=== PATIENT | female | born 1970 | race American Indian/Alaskan Native ===

== ENCOUNTER 2016-05-25 18:00 | Emergency (ER) | payer MEDICAID ==
[2016-05-25 18:18] VITALS: BP 165/94
[2016-05-25 19:54] LABS: CHLORIDE,CL 103 mmol/L (101-111); SODIUM,NA 138 mmol/L (135-145)
[2016-05-25] MEDS ORDERED: Potassium Chloride 10 MEQ Tab.ER PO ONE (20:00)
--- NOTE | 2016-05-25 20:00 | EDM.PDOC ---
ED HISTORY OF PRESENT ILLNESS - General Chief Complaint: Respiratory Problem Stated Complaint: SOB Time Seen by Provider: 05/25/16 19:05 Source of Information: Reports: Patient History Limitations: Reports: No limitations - History of Present Illness INITIAL COMMENTS - FREE TEXT/NARRATIVE: c/o not feeling well, tired, epigastric chest discomfort at time radiates into back Loose stools, worse since starting antibiotic and prednisone this week for bronchitis. Not feeling better with meds and concerned since clinic "didn't do any labs or xray" Severity: mild Location, General: Reports: chest - Related Data Allergies/ADRs: Allergies Allergy/AdvReac Type Severity Reaction Status Date / Time lisinopril Allergy UNKNOWN Verified 05/26/16 22:31 DUST Allergy SNEEZING/CO Uncoded 05/26/16 22:31 NGESTION Home Meds: Home Meds Propranolol [Inderal] 1 tab PO DAILY 03/17/15 [History] Loratadine [Claritin] 10 mg PO DAILY 04/17/15 [History] amLODIPine [Norvasc] 5 mg PO DAILY 09/04/15 [History] atorvaSTATin [Lipitor] 20 mg PO DAILY 11/25/15 [History] Aspirin 81 mg PO DAILY 05/26/16 [History] Past Medical History - Past Health History Medical/Surgical History: Denies Medical/Surgical History Cardiovascular History: Reports: Hypertension Respiratory History: Reports: None Gastrointestinal History: Reports: None 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 History: Reports: None [employer]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 OB/BYN History: 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, 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 Musculoskeletal History: Reports: None Neurological History: Reports: None Psychiatric History: Reports: Anxiety Endocrine/Metabolic History: Reports: None Hematologic History: Reports: None Immunologic History: Reports: Other (see below) Other Immunologic History: lupus Oncologic (Cancer) History: Reports: None - Past Surgical History GI Surgical History: Reports: None Female Surgical History: Reports: Hysterectomy, Tubal ligation Dermatological Surgical History: Reports: None Social & Family History - Family History Family Medical History: Noncontributory Cardiac: Reports: CAD, Heart failure, High cholesterol, Hypertension, SOB on exertion Respiratory: Reports: Asthma, COPD Neurological: Reports: CVA - Tobacco Use Smoking Status *Q: Current Every Day Smoker Years of Tobacco use: 20 Packs/Tins Daily: 1 Used Tobacco, but Quit: No Second Hand Smoke Exposure: Yes - Caffeine Use Caffeine Use: Reports: Coffee - Alcohol Use Days Per Week of Alcohol Use: 1 Number of Drinks Per Day: 6 Total Drinks Per Week: 6 - Recreational Drug Use Recreational Drug Use: No - Living Situation & Occupation Living situation: Reports: with family Occupation: employed ED ROS GENERAL - Review of Systems Review Of Systems: See Below Constitutional: Reports: malaise, fatigue, decreased appetite Cardiovascular: Reports: No symptoms GI/Abdominal: Reports: No symptoms : Reports: no symptoms Musculoskeletal: Reports: other (aches) ED EXAM, GENERAL - Physical Exam Exam: See Below Exam Limited By: No limitations General Appearance: alert, no apparent distress, anxious Eye Exam: bilateral eye: EOMI Ears: normal external exam, normal TMs Nose: normal inspection Throat/Mouth: Normal inspection, Normal lips Head: atraumatic, normocephalic Neck: normal inspection, non-tender, full range of motion Respiratory/Chest: no respiratory distress, lungs clear, normal breath sounds Cardiovascular: normal peripheral pulses, regular rate, rhythm GI/Abdominal: normal bowel sounds, soft, non tender Rectal (Female) Exam: Normal Exam Back Exam: normal inspection. No: CVA tenderness (L), CVA tenderness (R) Extremities: normal inspection Neurological: alert, oriented, normal cognition Course - Vital Signs Last Recorded V/S: Last Vital Signs Temp 97.8 F 05/25/16 18:13 Pulse 72 05/25/16 18:13 Resp 16 05/25/16 18:13 BP 165/94 H 05/25/16 18:13 Pulse Ox 99 05/25/16 18:13 - Orders/Labs/Meds Labs: Laboratory Tests 05/25/16 05/25/16 05/25/16 Range/Units 19:18 19:18 19:25 WBC 9.5 (5.0-10.0) 10^3/uL RBC 4.24 (4.2-5.4) 10^6/uL Hgb 13.6 (12.0-16.0) g/dL Hct 40.1 (37.0-47.0) % MCV 94.6 (80-100) fL MCH 32.1 (27.0-34.0) pg MCHC 33.9 (33.0-35.0) g/dL Plt Count 221 (150-450) 10^3/uL Neut % (Auto) 53.1 (42.2-75.2) % Lymph % (Auto) 36.4 (20.5-50.1) % [place] % (Auto) 8.6 H (2-8) % Eos % (Auto) 1.7 (1.0-3.0) % Baso % (Auto) 0.2 (0.0-1.0) % D-Dimer, Quantitative (0-400) ng/mL Sodium (135-145) mmol/L Potassium (3.6-5.0) mmol/L Chloride (101-111) mmol/L Carbon Dioxide (21.0-31.0) mmol/L Anion Gap BUN (7-18) mg/dL Creatinine (0.6-1.3) mg/dL Est Cr Clr Drug Dosing mL/min Estimated GFR (MDRD) BUN/Creatinine Ratio Glucose (74-105) mg/dL Calcium (8.4-10.2) mg/dl Total Bilirubin (0.2-1.0) mg/dL AST (10-42) IU/L ALT (10-60) IU/L Alkaline Phosphatase (42-121) IU/L CK-MB (CK-2) (0.4-4.7) ng/mL Troponin I (0.00-0.02) ng/ml B-Natriuretic Peptide (0-100) pg/ml Total Protein (6.7-8.2) g/dl Albumin (3.2-5.5) g/dl Globulin Albumin/Globulin Ratio Amylase (28-100) U/L Lipase (22-51) U/L Urine Color [place] (YELLOW) Urine Appearance Clear (CLEAR) Urine pH 5.5 (5.0-9.0) Ur Specific [place] >= 1.030 (1.005-1.030) Urine Protein 30 H (NEGATIVE) Urine Glucose (UA) Negative (NEGATIVE) Urine Ketones Trace H (NEGATIVE) Urine Occult Blood Negative (NEGATIVE) Urine Nitrite Negative (NEGATIVE) Urine Bilirubin Small H (NEGATIVE) Urine Urobilinogen 0.2 (0.2-1.0) mg/dL Ur Leukocyte Esterase Negative (NEGATIVE) Urine RBC 0-5 /HPF Urine WBC 0-5 (0-5/HPF) /HPF Ur Epithelial Cells Moderate H /HPF Urine Bacteria Few (0-FEW/HPF) /HPF Hyaline Casts Few H /LPF Urine Mucus Many H /LPF Urine Opiates Screen Negative (NEGATIVE) Ur Oxycodone Screen Negative (NEGATIVE) Urine Methadone Screen Negative (NEGATIVE) Ur Barbiturates Screen Negative (NEGATIVE) U Tricyclic Antidepress Negative (NEGATIVE) Ur Phencyclidine Scrn Negative (NEGATIVE) Ur Amphetamine Screen Negative (NEGATIVE) U Methamphetamines Scrn Negative (NEGATIVE) Urine MDMA Screen Negative (NEGATIVE) U Benzodiazepines Scrn Negative (NEGATIVE) Urine Cocaine Screen Negative (NEGATIVE) U Marijuana (THC) Screen Negative (NEGATIVE) 05/25/16 05/25/16 05/25/16 Range/Units 19:25 19:25 19:25 WBC (5.0-10.0) 10^3/uL RBC (4.2-5.4) 10^6/uL Hgb (12.0-16.0) g/dL Hct (37.0-47.0) % MCV (80-100) fL MCH (27.0-34.0) pg MCHC (33.0-35.0) g/dL Plt Count (150-450) 10^3/uL Neut % (Auto) (42.2-75.2) % Lymph % (Auto) (20.5-50.1) % [place] % (Auto) (2-8) % Eos % (Auto) (1.0-3.0) % Baso % (Auto) (0.0-1.0) % D-Dimer, Quantitative < 100 (0-400) ng/mL Sodium 138 (135-145) mmol/L Potassium 3.1 L (3.6-5.0) mmol/L Chloride 103 (101-111) mmol/L Carbon Dioxide 25.0 (21.0-31.0) mmol/L Anion Gap 13.1 BUN 20 H (7-18) mg/dL Creatinine 0.5 L (0.6-1.3) mg/dL Est Cr Clr Drug Dosing 133.01 mL/min Estimated GFR (MDRD) > 60 BUN/Creatinine Ratio 40.00 Glucose 97 (74-105) mg/dL Calcium 8.8 (8.4-10.2) mg/dl Total Bilirubin 0.1 L (0.2-1.0) mg/dL AST 17 (10-42) IU/L ALT 21 (10-60) IU/L Alkaline Phosphatase 85 (42-121) IU/L CK-MB (CK-2) 1.10 (0.4-4.7) ng/mL Troponin I 0.06 H* (0.00-0.02) ng/ml B-Natriuretic Peptide (0-100) pg/ml Total Protein 7.3 (6.7-8.2) g/dl Albumin 4.1 (3.2-5.5) g/dl Globulin 3.2 Albumin/Globulin Ratio 1.28 Amylase 63 (28-100) U/L Lipase 31 (22-51) U/L Urine Color (YELLOW) Urine Appearance (CLEAR) Urine pH (5.0-9.0) Ur Specific [place] (1.005-1.030) Urine Protein (NEGATIVE) Urine Glucose (UA) (NEGATIVE) Urine Ketones (NEGATIVE) Urine Occult Blood (NEGATIVE) Urine Nitrite (NEGATIVE) Urine Bilirubin (NEGATIVE) Urine Urobilinogen (0.2-1.0) mg/dL Ur Leukocyte Esterase (NEGATIVE) Urine RBC /HPF Urine WBC (0-5/HPF) /HPF Ur Epithelial Cells /HPF Urine Bacteria (0-FEW/HPF) /HPF Hyaline Casts /LPF Urine Mucus /LPF Urine Opiates Screen (NEGATIVE) Ur Oxycodone Screen (NEGATIVE) Urine Methadone Screen (NEGATIVE) Ur Barbiturates Screen (NEGATIVE) U Tricyclic Antidepress (NEGATIVE) Ur Phencyclidine Scrn (NEGATIVE) Ur Amphetamine Screen (NEGATIVE) U Methamphetamines Scrn (NEGATIVE) Urine MDMA Screen (NEGATIVE) U Benzodiazepines Scrn (NEGATIVE) Urine Cocaine Screen (NEGATIVE) U Marijuana (THC) Screen (NEGATIVE) 05/25/16 Range/Units 19:25 WBC (5.0-10.0) 10^3/uL RBC (4.2-5.4) 10^6/uL Hgb (12.0-16.0) g/dL Hct (37.0-47.0) % MCV (80-100) fL MCH (27.0-34.0) pg MCHC (33.0-35.0) g/dL Plt Count (150-450) 10^3/uL Neut % (Auto) (42.2-75.2) % Lymph % (Auto) (20.5-50.1) % [place] % (Auto) (2-8) % Eos % (Auto) (1.0-3.0) % Baso % (Auto) (0.0-1.0) % D-Dimer, Quantitative (0-400) ng/mL Sodium (135-145) mmol/L Potassium (3.6-5.0) mmol/L Chloride (101-111) mmol/L Carbon Dioxide (21.0-31.0) mmol/L Anion Gap BUN (7-18) mg/dL Creatinine (0.6-1.3) mg/dL Est Cr Clr Drug Dosing mL/min Estimated GFR (MDRD) BUN/Creatinine Ratio Glucose (74-105) mg/dL Calcium (8.4-10.2) mg/dl Total Bilirubin (0.2-1.0) mg/dL AST (10-42) IU/L ALT (10-60) IU/L Alkaline Phosphatase (42-121) IU/L CK-MB (CK-2) (0.4-4.7) ng/mL Troponin I (0.00-0.02) ng/ml B-Natriuretic Peptide 12 (0-100) pg/ml Total Protein (6.7-8.2) g/dl Albumin (3.2-5.5) g/dl Globulin Albumin/Globulin Ratio Amylase (28-100) U/L Lipase (22-51) U/L Urine Color (YELLOW) Urine Appearance (CLEAR) Urine pH (5.0-9.0) Ur Specific [place] (1.005-1.030) Urine Protein (NEGATIVE) Urine Glucose (UA) (NEGATIVE) Urine Ketones (NEGATIVE) Urine Occult Blood (NEGATIVE) Urine Nitrite (NEGATIVE) Urine Bilirubin (NEGATIVE) Urine Urobilinogen (0.2-1.0) mg/dL Ur Leukocyte Esterase (NEGATIVE) Urine RBC /HPF Urine WBC (0-5/HPF) /HPF Ur Epithelial Cells /HPF Urine Bacteria (0-FEW/HPF) /HPF Hyaline Casts /LPF Urine Mucus /LPF Urine Opiates Screen (NEGATIVE) Ur Oxycodone Screen (NEGATIVE) Urine Methadone Screen (NEGATIVE) Ur Barbiturates Screen (NEGATIVE) U Tricyclic Antidepress (NEGATIVE) Ur Phencyclidine Scrn (NEGATIVE) Ur Amphetamine Screen (NEGATIVE) U Methamphetamines Scrn (NEGATIVE) Urine MDMA Screen (NEGATIVE) U Benzodiazepines Scrn (NEGATIVE) Urine Cocaine Screen (NEGATIVE) U Marijuana (THC) Screen (NEGATIVE) Meds: Medications Discontinued Medications Generic Name Dose Route Start Last Admin Trade Name Fabian PRN Reason Stop Dose Admin Aspirin 324 mg 05/25/16 20:02 05/25/16 20:12 Aspirin PO 05/25/16 20:03 324 mg ONETIME ONE Administration Potassium Chloride 40 meq 05/25/16 20:00 05/25/16 20:13 Klor-Con 10 PO 05/25/16 20:01 40 meq ONETIME ONE Administration - Re-Assessments/Exams Free Text/Narrative Re-Assessment/Exam: Vitals stable, nonspecific complaints with elevated troponin. Dr. Triana accepting of patient in tx. Tx via [facility] Departure - Departure Time of Disposition: 06:50 Disposition: DC/Tfer to Acute Hospital 02 Condition: good Clinical Impression: Elevated troponin, Malaise Referrals: PCP,Unobtain [Primary Care Provider] - Forms: ED Department Discharge
[2016-05-25] MEDS ORDERED: Aspirin 81 MG Tab.Chew PO ONE (20:02)
--- NOTE | 2016-07-07 12:55 | EKG ---
05/25/2016 - JACK VALLADARES - 12-lead EKG shows normal sinus rhythm with heart rate of 65. No significant ST elevation or ST depression noted on this 12-lead EKG. [facility] /[id number]
== END 2016-05-25 21:00 ==
LOC: DL.ED 18:00
DX: R79.89 Other specified abnormal findings of blood chemistry (principal); R53.81 Other malaise; R06.02 Shortness of breath; R07.89 Other chest pain; M54.9 Dorsalgia, unspecified; R19.7 Diarrhea, unspecified; I10 Essential (primary) hypertension; Z79.82 Long term (current) use of aspirin; Z79.899 Other long term (current) drug therapy; Z88.8 Allergy status to other drugs, medicaments and biological substances; Z91.048 Other nonmedicinal substance allergy status
CPT/HCPCS: 36415; 71020; 80053; 80305; 81001; 82150; 82553; 83690; 83880; 84484; 85025; 85379; 87081; 87430; 87804; 93005; 99285; A9270

== ENCOUNTER 2016-05-26 22:19 | Emergency (ER) | payer MEDICAID ==
[2016-05-26 22:59] VITALS: BP 144/96
--- NOTE | 2016-05-26 23:13 | EDM.PDOC ---
ED HPI NEURO - General Chief Complaint: Neuro Symptoms/Deficits Stated Complaint: PINCHED NERVE OR STROKE Time Seen by Provider: 05/26/16 22:30 Source of Information: Reports: Patient - History of Present Illness INITIAL COMMENTS - FREE TEXT/NARRATIVE: c/o tingling left arm from neck to wrist, noted around 4 pm while at work, finished shift and was told by sister she should go to ER. Patient was transferred to last [facility] with elevated troponin, follow up was negative, no medication changes were made. No other symptoms. No weakness. Questions if from sleeping funny last kiley. Location (Neuro Complaint): Reports: upper extremity, left Quality (Neuro Complaint): Reports: numbness - Related Data Allergies/ADRs: Allergies Allergy/AdvReac Type Severity Reaction Status Date / Time lisinopril Allergy UNKNOWN Verified 05/26/16 22:31 DUST Allergy SNEEZING/CO Uncoded 05/26/16 22:31 NGESTION Home Meds: Home Meds Propranolol [Inderal] 1 tab PO DAILY 03/17/15 [History] Loratadine [Claritin] 10 mg PO DAILY 04/17/15 [History] amLODIPine [Norvasc] 5 mg PO DAILY 09/04/15 [History] atorvaSTATin [Lipitor] 20 mg PO DAILY 11/25/15 [History] Aspirin 81 mg PO DAILY 05/26/16 [History] Past Medical History - Past Health History Medical/Surgical History: Denies Medical/Surgical History Cardiovascular History: Reports: Hypertension Respiratory History: Reports: None Gastrointestinal History: Reports: None 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 History: Reports: None [employer]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 OB/BYN History: 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, 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 Musculoskeletal History: Reports: None Neurological History: Reports: None Psychiatric History: Reports: Anxiety Endocrine/Metabolic History: Reports: None Hematologic History: Reports: None Immunologic History: Reports: Other (see below) Other Immunologic History: lupus Oncologic (Cancer) History: Reports: None - Past Surgical History GI Surgical History: Reports: None Female Surgical History: Reports: Hysterectomy, Tubal ligation Dermatological Surgical History: Reports: None Social & Family History - Family History Family Medical History: Noncontributory Cardiac: Reports: CAD, Heart failure, High cholesterol, Hypertension, SOB on exertion Respiratory: Reports: Asthma, COPD Neurological: Reports: CVA - Tobacco Use Smoking Status *Q: Current Every Day Smoker Years of Tobacco use: 34 Packs/Tins Daily: 0.5 Used Tobacco, but Quit: No Second Hand Smoke Exposure: Yes - Caffeine Use Caffeine Use: Reports: Coffee - Alcohol Use Days Per Week of Alcohol Use: 1 Number of Drinks Per Day: 6 Total Drinks Per Week: 6 - Recreational Drug Use Recreational Drug Use: No - Living Situation & Occupation Living situation: Reports: with family Occupation: employed ED ROS GENERAL - Review of Systems Review Of Systems: See Below Constitutional: Reports: no symptoms HEENT: Reports: No symptoms Respiratory: Reports: no symptoms Cardiovascular: Reports: No symptoms GI/Abdominal: Reports: No symptoms Musculoskeletal: Reports: no symptoms Skin: Reports: no symptoms Neurological: Reports: numbness (left arm) ED EXAM, NEURO - Physical Exam Exam: See Below Exam Limited By: No limitations General Appearance: alert, no apparent distress, anxious Eye Exam: bilateral eye: EOMI, PERRL (3mm equal) Ears: normal external exam, normal TMs Nose: normal inspection Throat/Mouth: Normal inspection, Normal lips Head Exam: atraumatic, normocephalic. No: facial swelling, facial tenderness Neck: full range of motion, tender lateral (mild tenderness left worse with stretching) Respiratory/Chest: no respiratory distress, lungs clear, normal breath sounds Cardiovascular: normal peripheral pulses, regular rate, rhythm, no edema GI/Abdominal: normal bowel sounds, soft Neurological: alert, CN II-XII intact, normal gait, normal reflexes, no motor/ sensory deficits, oriented x 3, other (bilateral upper extremity strength strong equal , pain noted left inner froearm to shoulder area with char filter tank tender head sharp.) . No: abnormal light touch Back Exam: normal inspection, full range of motion Extremities: normal inspection, normal range of motion, non-tender Psychiatric: anxious Skin Exam: Warm, Dry, Intact, Normal color Course - Vital Signs Last Recorded V/S: Last Vital Signs Temp 97 F 05/26/16 22:24 Pulse 80 05/26/16 22:59 Resp 16 05/26/16 22:59 BP 144/96 H 05/26/16 22:59 Pulse Ox 100 05/26/16 22:59 - Radiology Interpretation Free Text/Narrative:: CT head negative Departure - Departure Time of Disposition: 23:07 Disposition: Home, Self-Care 01 Condition: good Clinical Impression: Pinched nerve Instructions: Pinched Nerve Forms: ED Department Discharge Additional Instructions: rest follow up with appointments as scheduled urgent follow up if symptoms worsen continue medications as ordered
== END 2016-05-26 23:14 | disposition home or self-care (01) ==
LOC: DL.ED 22:19
DX: G58.9 Mononeuropathy, unspecified (principal); Z79.82 Long term (current) use of aspirin; Z79.899 Other long term (current) drug therapy; Z88.8 Allergy status to other drugs, medicaments and biological substances; Z91.048 Other nonmedicinal substance allergy status; I25.10 Atherosclerotic heart disease of native coronary artery without angina pectoris; I10 Essential (primary) hypertension; I50.9 Heart failure, unspecified; F17.210 Nicotine dependence, cigarettes, uncomplicated; E78.00 Pure hypercholesterolemia, unspecified; J44.9 Chronic obstructive pulmonary disease, unspecified; R20.0 Anesthesia of skin
CPT/HCPCS: 70450; 99285

== ENCOUNTER 2016-11-09 17:43 | Emergency (ER) | payer MEDICAID ==
[2016-11-09] MEDS ORDERED: Sodium Chloride 0.9% 10 ML Syringe FLUSH PRN (18:00)
[2016-11-09] MEDS ORDERED: Iopamidol 612 MG/ML 100 ML Bottle IVPUSH ONE (18:14)
[2016-11-09 18:38] LABS: CHLORIDE,CL 105 mmol/L (101-111); SODIUM,NA 137 mmol/L (135-145)
--- NOTE | 2016-11-09 18:57 | EDM.PDOC ---
ED HPI GENERAL MEDICAL PROBLEM - General Chief Complaint: Abdominal Pain Stated Complaint: feel sick [id number] Time Seen by Provider: 11/09/16 18:00 Source of Information: Reports: Patient History Limitations: Reports: No Limitations - History of Present Illness INITIAL COMMENTS - FREE TEXT/NARRATIVE: 46 yo female presents with 1 week of epigastric pain after eating. c/o mild chest pain but state pain more prevelent in abdomen. Denies radiation but states that today she had an episode of vomiting green fluid. No other complaints currently. 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 Medication(s) (omeprazole) Epigastric Pain Score (Numeric/FACES): 8 - Related Data Allergies Allergy/AdvReac Type Severity Reaction Status Date / Time lisinopril Allergy UNKNOWN Verified 11/09/16 18:02 DUST Allergy SNEEZING/CO Uncoded 11/09/16 18:02 NGESTION Home Meds: Home Meds Propranolol [Inderal] 1 tab PO DAILY 03/17/15 [History] Loratadine [Claritin] 10 mg PO DAILY 04/17/15 [History] Aspirin 81 mg PO DAILY 05/26/16 [History] Omeprazole 20 mg PO DAILY 11/09/16 [History] Past Medical History - Past Health History Medical/Surgical History: Denies Medical/Surgical History Cardiovascular History: Reports: High Cholesterol, Hypertension Respiratory History: Reports: Bronchitis, Recurrent Gastrointestinal History: Reports: GERD 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 History: Reports: None 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 OB/BYN History: 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, 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 Musculoskeletal History: Reports: None Neurological History: Reports: None Psychiatric History: Reports: Anxiety Endocrine/Metabolic History: Reports: None Hematologic History: Reports: None Immunologic History: Reports: Other (See Below) Other Immunologic History: lupus Oncologic (Cancer) History: Reports: None - Past Surgical History GI Surgical History: Reports: None Female Surgical History: Reports: Hysterectomy, Tubal Ligation Dermatological Surgical History: Reports: None Social & Family History - Family History Family Medical History: Noncontributory Cardiac: Reports: CAD, Heart Failure, High Cholesterol, Hypertension, SOB on Exertion Respiratory: Reports: Asthma, COPD Neurological: Reports: CVA - Tobacco Use Smoking Status *Q: Former Smoker Years of Tobacco use: 34 Packs/Tins Daily: 0.5 Used Tobacco, but Quit: Yes Month Tobacco Last Used: unknown Second Hand Smoke Exposure: Yes - Caffeine Use Caffeine Use: Reports: Coffee - Alcohol Use Days Per Week of Alcohol Use: 1 Number of Drinks Per Day: 6 Total Drinks Per Week: 6 - Recreational Drug Use Recreational Drug Use: No - Living Situation & Occupation Living situation: Reports: with Family Occupation: Employed ED ROS GENERAL - Review of Systems Review Of Systems: ROS reveals no pertinent complaints other than HPI. ED EXAM,LOWER BACK PAIN/INJURY - Physical Exam Exam: See Below Exam Limited By: No Limitations General Appearance: Alert, WD/WN, No Apparent Distress Respiratory/Chest: No Respiratory Distress, Lungs Clear, Normal Breath Sounds, No Accessory Muscle Use, Chest Non-Tender Cardiovascular: Normal Peripheral Pulses, Regular Rate, Rhythm, No Edema, No Gallop, No JVD, No Murmur, No Rub GI/Abdominal: Normal Bowel Sounds, Soft, No Organomegaly, No Distention, No Abnormal Bruit, No Mass, Tender (epigastric area ) Neurological: Alert, Normal Mood/Affect, Normal Dorsiflexion, CN II-XII Intact, Normal Gait, No Motor/Sensory Deficits, Oriented x 3 Skin Exam: Warm, Dry, Intact, Normal Color, No Rash Course - Vital Signs Last Recorded V/S: Last Vital Signs Temp 98.8 F 11/09/16 18:13 Pulse 85 11/09/16 18:13 Resp 20 11/09/16 18:13 BP 166/86 H 11/09/16 19:11 Pulse Ox 100 11/09/16 18:13 - Orders/Labs/Meds Orders: Active Orders 24 hr Category Date Time Status Cardiac Monitoring [RC] . DIRECTED Care 11/09/16 18:00 Active EKG Documentation Completion [RC] STAT Care 11/09/16 18:00 Active Sodium Chloride 0.9% [Saline Flush] Med 11/09/16 18:00 Active 10 ml FLUSH ASDIRECTED PRN Saline Lock Insert [OM.PC] Stat Oth 11/09/16 18:00 Ordered Medication Orders Sodium Chloride (Saline Flush) 10 ml FLUSH ASDIRECTED PRN PRN Reason: Keep Vein Open Last Admin: 11/09/16 18:17 Dose: 10 ml Labs: Laboratory Tests 11/09/16 11/09/16 11/09/16 Range/Units 18:10 18:10 18:10 WBC 7.4 (5.0-10.0) 10^3/uL RBC 4.06 L (4.2-5.4) 10^6/uL Hgb 13.1 (12.0-16.0) g/dL Hct 37.7 (37.0-47.0) % MCV 92.9 (80-100) fL MCH 32.3 (27.0-34.0) pg MCHC 34.7 (33.0-35.0) g/dL Plt Count 203 (150-450) 10^3/uL Neut % (Auto) 60.7 (42.2-75.2) % Lymph % (Auto) 23.4 (20.5-50.1) % [place] % (Auto) 11.8 H (2-8) % Eos % (Auto) 3.8 H (1.0-3.0) % Baso % (Auto) 0.3 (0.0-1.0) % PT 8.8 L (9.0-12.0) SEC INR 0.9 (0.9-1.2) Sodium 137 (135-145) mmol/L Potassium 4.0 (3.6-5.0) mmol/L Chloride 105 (101-111) mmol/L Carbon Dioxide 22.0 (21.0-31.0) mmol/L Anion Gap 14.0 BUN 17 (7-18) mg/dL Creatinine 0.7 (0.6-1.3) mg/dL Est Cr Clr Drug Dosing 95.01 mL/min Estimated GFR (MDRD) > 60 BUN/Creatinine Ratio 24.28 Glucose 123 H (74-105) mg/dL Calcium 9.1 (8.4-10.2) mg/dl Total Bilirubin 0.3 (0.2-1.0) mg/dL AST 20 (10-42) IU/L ALT 23 (10-60) IU/L Alkaline Phosphatase 89 (42-121) IU/L Creatine Kinase (26-174) IU/L Creatine Kinase Index (0-2.4) % CK-MB (CK-2) (0.4-4.7) ng/mL Troponin I 0.06 H* (0.00-0.02) ng/ml Total Protein 7.0 (6.7-8.2) g/dl Albumin 3.9 (3.2-5.5) g/dl Globulin 3.1 Albumin/Globulin Ratio 1.26 Amylase 68 (28-100) U/L Lipase (22-51) U/L 11/09/16 11/09/16 Range/Units 18:10 18:10 WBC (5.0-10.0) 10^3/uL RBC (4.2-5.4) 10^6/uL Hgb (12.0-16.0) g/dL Hct (37.0-47.0) % MCV (80-100) fL MCH (27.0-34.0) pg MCHC (33.0-35.0) g/dL Plt Count (150-450) 10^3/uL Neut % (Auto) (42.2-75.2) % Lymph % (Auto) (20.5-50.1) % [place] % (Auto) (2-8) % Eos % (Auto) (1.0-3.0) % Baso % (Auto) (0.0-1.0) % PT (9.0-12.0) SEC INR (0.9-1.2) Sodium (135-145) mmol/L Potassium (3.6-5.0) mmol/L Chloride (101-111) mmol/L Carbon Dioxide (21.0-31.0) mmol/L Anion Gap BUN (7-18) mg/dL Creatinine (0.6-1.3) mg/dL Est Cr Clr Drug Dosing mL/min Estimated GFR (MDRD) BUN/Creatinine Ratio Glucose (74-105) mg/dL Calcium (8.4-10.2) mg/dl Total Bilirubin (0.2-1.0) mg/dL AST (10-42) IU/L ALT (10-60) IU/L Alkaline Phosphatase (42-121) IU/L Creatine Kinase 25 L (26-174) IU/L Creatine Kinase Index 2.4 (0-2.4) % CK-MB (CK-2) 0.60 (0.4-4.7) ng/mL Troponin I (0.00-0.02) ng/ml Total Protein (6.7-8.2) g/dl Albumin (3.2-5.5) g/dl Globulin Albumin/Globulin Ratio Amylase (28-100) U/L Lipase 33 (22-51) U/L Meds: Medications Generic Name Dose Route Start Last Admin Trade Name Fabian PRN Reason Stop Dose Admin Sodium Chloride 10 ml 11/09/16 18:00 11/09/16 18:17 Saline Flush FLUSH 10 ml ASDIRECTED PRN Administration Keep Vein Open Discontinued Medications Generic Name Dose Route Start Last Admin Trade Name Freq PRN Reason Stop Dose Admin Aspirin 324 mg 11/09/16 19:00 11/09/16 19:10 Aspirin PO 11/09/16 19:01 324 mg ONETIME ONE Administration Iopamidol 100 ml 11/09/16 18:14 11/09/16 18:24 Isovue-300 (61%) IVPUSH 11/09/16 18:15 100 ml ONETIME ONE Administration Nitroglycerin 1 gm 11/09/16 19:00 Nitro-Bid 2% TOP 11/09/16 19:01 ONETIME ONE Nitroglycerin 0.4 mg 11/09/16 19:00 11/09/16 19:11 Nitrostat SL 11/09/16 19:01 0.4 mg ONETIME ONE Administration - Re-Assessments/Exams Free Text/Narrative Re-Assessment/Exam: 11/09/16 19:10 Discussed case with Arias Roe who accepts the patient. Will treat HTN prior to transfer. 11/09/16 19:16 Pt refused to be transported by ground ambulance. States she will go by private vehicle per family. Explained to patient that her blood pressure is high and she needs to be monitored. Pt states that she still wants to go via private vehicle. Informed patient that she will be refusing against medical advice and will need to sign AMA form. 11/09/16 19:33 reattempted to explain to patient need for transport via ambulance with monitoring and pt continues to refuse. AMA paperwork signed. Pt states that she will drive to [facility] via her sister. Notified [facility] that pt is refusing transport and will arrive via private vehicle Departure - Departure Time of Disposition: 19:11 Disposition: Against Medical Advice 07 Condition: Good Clinical Impression: Non-STEMI (non-ST elevated myocardial infarction) - Discharge Information Forms: ED Department Discharge, Interfacility Transfer EMTALA, Refusal of Care AMA - My Orders Last 24 Hours: My Active Orders 11/09/16 18:00 Cardiac Monitoring [RC] . DIRECTED EKG Documentation Completion [RC] STAT Sodium Chloride 0.9% [Saline Flush] 10 ml FLUSH ASDIRECTED PRN Saline Lock Insert [OM.PC] Stat - Assessment/Plan Last 24 Hours: My Active Orders 11/09/16 18:00 Cardiac Monitoring [RC] . DIRECTED EKG Documentation Completion [RC] STAT Sodium Chloride 0.9% [Saline Flush] 10 ml FLUSH ASDIRECTED PRN Saline Lock Insert [OM.PC] Stat
[2016-11-09] MEDS ORDERED: Aspirin 81 MG Tab.Chew PO ONE (19:00)
[2016-11-09] MEDS ORDERED: Nitroglycerin 2% Oint 1 GM UD Packet TOP ONE (19:00)
[2016-11-09] MEDS ORDERED: Nitroglycerin 0.4 MG Tab.SL SL ONE (19:00)
[2016-11-09 19:34] VITALS: BP 163/94
--- NOTE | 2016-11-12 15:16 | EKG ---
11/09/2016- JACK VALLADARES - EKG per my reading shows sinus rhythm at the rate of 84. [facility] /[id number]
== END 2016-11-09 19:52 | disposition left against medical advice (07) ==
LOC: DL.ED 17:43
DX: I21.4 Non-ST elevation (NSTEMI) myocardial infarction (principal); E78.00 Pure hypercholesterolemia, unspecified; I10 Essential (primary) hypertension; K21.9 Gastro-esophageal reflux disease without esophagitis; F41.9 Anxiety disorder, unspecified; Z88.8 Allergy status to other drugs, medicaments and biological substances; Z91.09 Other allergy status, other than to drugs and biological substances; Z79.899 Other long term (current) drug therapy; Z79.82 Long term (current) use of aspirin; Z90.710 Acquired absence of both cervix and uterus; Z98.51 Tubal ligation status; Z87.891 Personal history of nicotine dependence
CPT/HCPCS: 36415; 71010; 74177; 80053; 82150; 82550; 82553; 83690; 84484; 85025; 85610; 93005; 99285; A9270; J7050; Q9967

== ENCOUNTER 2016-11-27 07:18 | Day surgery (SDC) | payer MEDICAID ==
[~2016-11-27 07:18] MED LIST: Dextrose 5%-0.45% NaCl 1,000 ML IV SCH; Midazolam 1 MG/ML 2 ML SDV ONE; Sodium Chloride 0.9% 10 ML Syringe FLUSH PRN; fentaNYL 100 MCG/2 ML SDV ONE
[2016-11-27] MEDS ORDERED: Midazolam 1 MG/ML 2 ML SDV IV ONE ×3 (07:19→09:55)
[2016-11-27] MEDS ORDERED: fentaNYL 100 MCG/2 ML SDV IV ONE ×3 (07:19→09:53)
[2016-11-27 12:51] VITALS: BP 140/84
--- NOTE | 2016-11-27 13:55 | OR ---
DATE: 11/27/2016 PROCEDURE: Esophagogastroduodenoscopy and multiple pinch biopsies. INSTRUMENT USED: GIF-H180 Olympus video panendoscope. PREMEDICATIONS: No oral topical anesthesia used. Fentanyl 100 mcg intravenous, Versed 2 mg intravenous. The procedure was done under pulse oximetry, BP recording, and alarm security or surveillance monitor. INDICATION: The patient with persistent upper abdominal pain, nausea, and vomiting unexplained and not responsive to medical measures. On acid suppressants. Esophagogastroduodenoscopy is performed for detection of any active erosive lesions, Aviles esophagus and/or malignancy also under consideration, H. pylori status to be determined, endoscopic hemostasis therapy if needed. DESCRIPTION OF PROCEDURE: The scope was passed with ease. Adequate visualization of the esophagus was made from proximal to distal areas. No upper esophageal lesions identified. No distal esophageal stricture. No uphill or downhill esophageal varices. No Gail-Mathews tear. No evidence of erosive esophagitis by Early criteria. No esophageal polyp or tumor mass identified. Z-line was seen at around 40 cm distal to the oral verge, configuration consistent with grade I by ZAP classification. No proximal gastric varices noted. Gastric fundus examination by retroflexion showed no polypoid lesions. No gastric ulcer, malignant mass, or vascular ectasia identified. Duodenal bulb showed no ulcer. Visualized second part of the duodenum was unremarkable. Multiple pinch biopsies were taken from the gastric antrum and proximal body and sent for PyloriTek test for H. pylori, and if negative in an hour, tissue is to be sent for histopathology. No bleeding was noted from any of the visualized areas at the completion of examination. Photographs were taken on the duodenal bulb, gastric antrum, fundus, and distal esophagus. IMPRESSION: Normal study. The patient tolerated the procedure well. [facility] /[id number]
== END 2016-11-27 11:50 | disposition home or self-care (01) ==
LOC: DL.ENDO 07:18
PROVIDERS: ATTEND Internal Medicine Gastroenterology
PROC: 0DB78ZX Excision of Stomach, Pylorus, Via Natural or Artificial Opening Endoscopic, Diagnostic (ICD-10-PCS; principal; 2016-11-27)
DX: K29.50 Unspecified chronic gastritis without bleeding (principal); I10 Essential (primary) hypertension; Z88.8 Allergy status to other drugs, medicaments and biological substances; Z90.710 Acquired absence of both cervix and uterus; E66.09 Other obesity due to excess calories; Z98.890 Other specified postprocedural states; E78.1 Pure hyperglyceridemia; Z79.899 Other long term (current) drug therapy
CPT/HCPCS: 43239; 87077; J2250; J3010; J7042

== ENCOUNTER 2017-05-24 19:48 | Emergency (ER) | payer MEDICAID, OTHER ==
[2017-05-24] MEDS ORDERED: Metoprolol Tartrate 5 MG/5 ML SDV IVPUSH ONE ×2 (20:03→20:26)
--- NOTE | 2017-05-24 20:25 | EDM.PDOC ---
ED HPI GENERAL MEDICAL PROBLEM - General Chief Complaint: Chest Pain Stated Complaint: CHEST PAIN [id number] Time Seen by Provider: 05/24/17 20:15 Source of Information: Reports: Patient History Limitations: Reports: No Limitations - History of Present Illness INITIAL COMMENTS - FREE TEXT/NARRATIVE: c/o intermittent chest pain, started few days ago noticed first on left side of neck thought possible pinched nerve. tonight sweaty with anterior chest pain radiating around left breast area to back and left sided facial numbness. C/o felling generally weak overall. Mid-Sternal Chest Pain Score (Numeric/FACES): 4 - Related Data Allergies Allergy/AdvReac Type Severity Reaction Status Date / Time lisinopril Allergy UNKNOWN Verified 05/24/17 20:15 DUST Allergy SNEEZING/CO Uncoded 05/24/17 20:15 NGESTION Home Meds: Home Meds Propranolol [Inderal] 10 mg PO BID 03/17/15 [History] Loratadine [Claritin] 10 mg PO ASDIRECTED PRN 04/17/15 [History] Famotidine [Pepcid AC] 40 mg PO DAILY 11/26/16 [History] Turmeric Root Extract [Turmeric] 500 mg PO DAILY 11/26/16 [History] amLODIPine [Norvasc] 5 mg PO DAILY 11/26/16 [History] Past Medical History - Past Health History Medical/Surgical History: Denies Medical/Surgical History Cardiovascular History: Reports: High Cholesterol, Hypertension Respiratory History: Reports: None Gastrointestinal History: Reports: GERD 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 History: Reports: 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 OB/BYN History: 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, 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 Musculoskeletal History: Reports: Other (See Below) Other Musculoskeletal History: discoid lupus Neurological History: Reports: None Psychiatric History: Reports: Anxiety Endocrine/Metabolic History: Reports: Other (See Below) Other Endocrine/Metabolic History: IMPAIRED GLUCOSE TOLERANCE Hematologic History: Reports: None Immunologic History: Reports: Other (See Below) Other Immunologic History: lupus Oncologic (Cancer) History: Other Oncologic History: "precancerous cells of cervix" - Infectious Disease History Infectious Disease History: Reports: Chicken Pox - Past Surgical History Head Surgeries/Procedures: Reports: None HEENT Surgical History: Reports: None Cardiovascular Surgical History: Reports: None Respiratory Surgical History: Reports: None GI Surgical History: Reports: None Female Surgical History: Reports: Cervical Conization, Hysterectomy, Tubal Ligation Endocrine Surgical History: Reports: None Neurological Surgical History: Reports: None Musculoskeletal Surgical History: Reports: None Dermatological Surgical History: Reports: None Social & Family History - Family History Family Medical History: Noncontributory Cardiac: Reports: CAD, Heart Failure, High Cholesterol, Hypertension, SOB on Exertion Respiratory: Reports: Asthma, COPD Neurological: Reports: CVA - Tobacco Use Smoking Status *Q: Current Every Day Smoker Years of Tobacco use: 35 Packs/Tins Daily: 10 Used Tobacco, but Quit: No Month/Year Tobacco Last Used: unknown Second Hand Smoke Exposure: Yes - Caffeine Use Caffeine Use: Reports: Coffee - Alcohol Use Days Per Week of Alcohol Use: 1 Number of Drinks Per Day: 6 Total Drinks Per Week: 6 Date of Last Drink: 05/23/17 - Recreational Drug Use Recreational Drug Use: No Drug Use in Last 12 Months: No - Living Situation & Occupation Living situation: Reports: with Family Occupation: Employed ED ROS GENERAL - Review of Systems Review Of Systems: ROS reveals no pertinent complaints other than HPI. HEENT: Reports: No Symptoms Respiratory: Denies: Shortness of Breath Cardiovascular: Reports: Chest Pain (radiates around left chest and through back.), Blood Pressure Problem GI/Abdominal: Denies: Abdominal Pain Musculoskeletal: Reports: Neck Pain (left side) Skin: Reports: No Symptoms Neurological: Reports: Numbness (left side of face) ED EXAM, GENERAL - Physical Exam Exam: See Below Exam Limited By: No Limitations General Appearance: Alert, Anxious Eye Exam: Bilateral Eye: EOMI, PERRL Ears: Normal External Exam Nose: Normal Inspection Throat/Mouth: Normal Inspection, Normal Voice Head: Atraumatic, Normocephalic Neck: Normal Inspection. No: Lymphadenopathy (L), Lymphadenopathy (R) Respiratory/Chest: No Respiratory Distress, Lungs Clear, Normal Breath Sounds Cardiovascular: Normal Peripheral Pulses, Regular Rate, Rhythm GI/Abdominal: Normal Bowel Sounds Extremities: Normal Inspection, Normal Range of Motion, No Pedal Edema Neurological: Alert, Oriented, Normal Cognition, Sensory/Motor Deficit (left facial decreased sensation, no facial droop noted. equal strength upper and lower extremities. ) Psychiatric: Anxious Skin Exam: Warm, Dry, Intact, Normal Color Course - Vital Signs Last Recorded V/S: Last Vital Signs Temp 99.5 F 05/24/17 20:32 Pulse 78 05/24/17 20:51 Resp 18 05/24/17 20:51 BP 160/90 H 05/24/17 20:51 Pulse Ox 98 05/24/17 20:51 - Orders/Labs/Meds Labs: Laboratory Tests 05/24/17 05/24/17 05/24/17 Range/Units 20:00 20:00 20:00 WBC 7.0 (5.0-10.0) 10^3/uL RBC 4.04 L (4.2-5.4) 10^6/uL Hgb 12.7 (12.0-16.0) g/dL Hct 36.9 L (37.0-47.0) % MCV 91.3 (80-100) fL MCH 31.4 (27.0-34.0) pg MCHC 34.4 (33.0-35.0) g/dL Plt Count 211 (150-450) 10^3/uL Neut % (Auto) 49.3 (42.2-75.2) % Lymph % (Auto) 34.9 (20.5-50.1) % [place] % (Auto) 12.4 H (2-8) % Eos % (Auto) 3.0 (1.0-3.0) % Baso % (Auto) 0.4 (0.0-1.0) % PT 9.2 (9.0-12.0) SEC INR 0.9 (0.9-1.2) D-Dimer, Quantitative 294 (0-400) ng/mL Sodium 138 (135-145) mmol/L Potassium 3.5 L (3.6-5.0) mmol/L Chloride 104 (101-111) mmol/L Carbon Dioxide 26.0 (21.0-31.0) mmol/L Anion Gap 11.5 BUN 14 (7-18) mg/dL Creatinine 0.6 (0.6-1.3) mg/dL Est Cr Clr Drug Dosing 109.68 mL/min Estimated GFR (MDRD) > 60 BUN/Creatinine Ratio 23.33 Glucose 132 H (74-105) mg/dL Calcium 8.8 (8.4-10.2) mg/dl Total Bilirubin 0.5 (0.2-1.0) mg/dL AST 24 (10-42) IU/L ALT 20 (10-60) IU/L Alkaline Phosphatase 88 (42-121) IU/L CK-MB (CK-2) (0.4-4.7) ng/mL Troponin I 0.06 H* (0.00-0.02) ng/ml Total Protein 7.5 (6.7-8.2) g/dl Albumin 4.0 (3.2-5.5) g/dl Globulin 3.5 Albumin/Globulin Ratio 1.14 05/24/17 Range/Units 20:00 WBC (5.0-10.0) 10^3/uL RBC (4.2-5.4) 10^6/uL Hgb (12.0-16.0) g/dL Hct (37.0-47.0) % MCV (80-100) fL MCH (27.0-34.0) pg MCHC (33.0-35.0) g/dL Plt Count (150-450) 10^3/uL Neut % (Auto) (42.2-75.2) % Lymph % (Auto) (20.5-50.1) % [place] % (Auto) (2-8) % Eos % (Auto) (1.0-3.0) % Baso % (Auto) (0.0-1.0) % PT (9.0-12.0) SEC INR (0.9-1.2) D-Dimer, Quantitative (0-400) ng/mL Sodium (135-145) mmol/L Potassium (3.6-5.0) mmol/L Chloride (101-111) mmol/L Carbon Dioxide (21.0-31.0) mmol/L Anion Gap BUN (7-18) mg/dL Creatinine (0.6-1.3) mg/dL Est Cr Clr Drug Dosing mL/min Estimated GFR (MDRD) BUN/Creatinine Ratio Glucose (74-105) mg/dL Calcium (8.4-10.2) mg/dl Total Bilirubin (0.2-1.0) mg/dL AST (10-42) IU/L ALT (10-60) IU/L Alkaline Phosphatase (42-121) IU/L CK-MB (CK-2) 0.90 (0.4-4.7) ng/mL Troponin I (0.00-0.02) ng/ml Total Protein (6.7-8.2) g/dl Albumin (3.2-5.5) g/dl Globulin Albumin/Globulin Ratio Meds: Medications Discontinued Medications Generic Name Dose Route Start Last Admin Trade Name Fabian PRN Reason Stop Dose Admin Metoprolol Tartrate 2.5 mg 05/24/17 20:03 05/24/17 20:07 Lopressor IVPUSH 05/24/17 20:04 2.5 mg ONETIME ONE Administration Metoprolol Tartrate 2.5 mg 05/24/17 20:26 05/24/17 20:30 Lopressor IVPUSH 05/24/17 20:27 2.5 mg ONETIME ONE Administration Nitroglycerin 0.4 mg 05/24/17 20:31 05/24/17 20:47 Nitrostat SL 05/24/17 20:32 Not Given ONETIME ONE Nitroglycerin 0.4 mg 05/24/17 20:44 05/24/17 20:45 Nitrostat SL 05/24/17 20:45 0.4 mg ONETIME ONE Administration - Radiology Interpretation Free Text/Narrative:: head CT:mild early cerebral cortical atrophy Otherwise normal non contrast head CT CXR: stable mild thoracic aortic tortuosity - Re-Assessments/Exams Free Text/Narrative Re-Assessment/Exam: 05/24/17 21:19 Dr. Aimee Bianchi accepting of patient for further evaluation chest pain and facial numbness. Patient has had similar presentations in past and coincidentally has been seen yearly in May for past three years between and . . D 05/24/17 21:22 05/27/17 04:51 Departure - Departure Time of Disposition: 21:45 Disposition: DC/Tfer to Acute Hospital 02 Reason for Transfer *Q: Other Condition: Undetermined Clinical Impression: Elevated troponin, Left facial numbness Hypertension Qualifiers: Hypertension type: unspecified secondary hypertension Qualified Code(s): I15.9 - Secondary hypertension, unspecified Forms: ED Department Discharge
[2017-05-24 20:26] LABS: CHLORIDE,CL 104 mmol/L (101-111); SODIUM,NA 138 mmol/L (135-145)
[2017-05-24] MEDS ORDERED: Nitroglycerin 0.4 MG Tab.SL SL ONE ×2 (20:31→20:44)
[2017-05-24 20:51] VITALS: BP 160/90
--- NOTE | 2017-05-27 10:48 | EKG ---
05/24/2017- JACK VALLADARES - EKG, per my reading, shows sinus rhythm at a rate of 80. [facility] /[id number]
== END 2017-05-24 21:46 ==
LOC: DL.ED 19:48
DX: R07.89 Other chest pain (principal); I15.9 Secondary hypertension, unspecified; R20.0 Anesthesia of skin; R79.89 Other specified abnormal findings of blood chemistry; E78.00 Pure hypercholesterolemia, unspecified; F17.210 Nicotine dependence, cigarettes, uncomplicated; K21.9 Gastro-esophageal reflux disease without esophagitis; Z88.8 Allergy status to other drugs, medicaments and biological substances; Z91.09 Other allergy status, other than to drugs and biological substances
CPT/HCPCS: 36415; 70450; 71045; 80053; 82553; 84484; 85025; 85379; 85610; 93005; 96374; 99285; A9270; J3490

== ENCOUNTER 2017-09-03 12:31 | Emergency (ER) | payer OTHER ==
--- NOTE | 2017-09-03 13:09 | EDM.PDOC ---
ED HPI GENERAL MEDICAL PROBLEM - General Chief Complaint: Cardiovascular Problem Stated Complaint: SENT FROM CLINIC FOR BLOOD PRESSURE [id number] Time Seen by Provider: 09/03/17 13:03 Source of Information: Reports: Patient History Limitations: Reports: No Limitations - History of Present Illness INITIAL COMMENTS - FREE TEXT/NARRATIVE: This 47 yo female patient was sent to the ED from the [facility] due to having high blood pressure while at home. The patient reports that she has not been feeling well over the past couple of days (lightheaded and dizzy when she stands up). The patient was supposed to see Dr. Cook this afternoon at 1300, but was advised to come directly to the ED for evaluation and treatment. The patient reports that she took her blood pressure medication at about 1100. Onset Date: 09/01/17 Duration: Intermittent Location: Reports: Generalized Quality: Reports: Other Severity: Moderate Improves with: Reports: Rest Worsens with: Reports: Movement Associated Symptoms: Reports: No Other Symptoms - Related Data Allergies Allergy/AdvReac Type Severity Reaction Status Date / Time lisinopril Allergy UNKNOWN Verified 05/24/17 20:15 DUST Allergy SNEEZING/CO Uncoded 05/24/17 20:15 NGESTION Home Meds: Home Meds Propranolol [Inderal] 10 mg PO BID 03/17/15 [History] Loratadine [Claritin] 10 mg PO ASDIRECTED PRN 04/17/15 [History] Famotidine [Pepcid AC] 40 mg PO DAILY 11/26/16 [History] Turmeric Root Extract [Turmeric] 500 mg PO DAILY 11/26/16 [History] amLODIPine [Norvasc] 5 mg PO DAILY 11/26/16 [History] Past Medical History - Past Health History Medical/Surgical History: Denies Medical/Surgical History Cardiovascular History: Reports: High Cholesterol, Hypertension Respiratory History: Reports: None Gastrointestinal History: Reports: GERD 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 History: Reports: None 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 OB/BYN History: 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, 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 Musculoskeletal History: Reports: Other (See Below) Other Musculoskeletal History: discoid lupus Neurological History: Reports: None Psychiatric History: Reports: Anxiety Endocrine/Metabolic History: Reports: Other (See Below) Other Endocrine/Metabolic History: IMPAIRED GLUCOSE TOLERANCE Hematologic History: Reports: None Immunologic History: Reports: Other (See Below) Other Immunologic History: lupus Oncologic (Cancer) History: Other Oncologic History: "precancerous cells of cervix" - Infectious Disease History Infectious Disease History: Reports: Chicken Pox - Past Surgical History Head Surgeries/Procedures: Reports: None HEENT Surgical History: Reports: None Cardiovascular Surgical History: Reports: None Respiratory Surgical History: Reports: None GI Surgical History: Reports: None, Other (See Below) Other GI Surgeries/Procedures: catheter for an obstruction in the small intestines Female Surgical History: Reports: Cervical Conization, Hysterectomy, Tubal Ligation Endocrine Surgical History: Reports: None Neurological Surgical History: Reports: None Musculoskeletal Surgical History: Reports: None Dermatological Surgical History: Reports: None Social & Family History - Family History Family Medical History: Noncontributory Cardiac: Reports: CAD, Heart Failure, High Cholesterol, Hypertension, SOB on Exertion Respiratory: Reports: Asthma, COPD Neurological: Reports: CVA - Tobacco Use Smoking Status *Q: Current Every Day Smoker Years of Tobacco use: 34 Packs/Tins Daily: 0.7 - Caffeine Use Caffeine Use: Reports: Coffee, Soda - Recreational Drug Use Recreational Drug Use: No - Living Situation & Occupation Living situation: Reports: with Family Occupation: Employed ED ROS GENERAL - Review of Systems Review Of Systems: ROS reveals no pertinent complaints other than HPI. ED EXAM, GENERAL - Physical Exam Exam: See Below Exam Limited By: No Limitations General Appearance: Alert, WD/WN, Anxious, Mild Distress Eye Exam: Bilateral Eye: EOMI, Normal Inspection, PERRL Ears: Normal External Exam, Normal Canal, Hearing Grossly Normal, Normal TMs Nose: Normal Inspection, Normal Mucosa, No Blood Throat/Mouth: Normal Inspection, Normal Lips, Normal Teeth, Normal Gums, Normal Oropharynx, Normal Voice, No Airway Compromise Head: Atraumatic, Normocephalic Neck: Normal Inspection, Supple, Non-Tender, Full Range of Motion Respiratory/Chest: No Respiratory Distress, Lungs Clear, Normal Breath Sounds, No Accessory Muscle Use, Chest Non-Tender Cardiovascular: Normal Peripheral Pulses, Regular Rate, Rhythm, No Edema, No Gallop, No JVD, No Murmur, No Rub GI/Abdominal: Normal Bowel Sounds, Soft, Non-Tender, No Organomegaly, No Distention, No Abnormal Bruit, No Mass (Female) Exam: Deferred Rectal (Female) Exam: Deferred Back Exam: Normal Inspection, Full Range of Motion, NT Extremities: Normal Inspection, Normal Range of Motion, Non-Tender, Normal Capillary Refill, No Pedal Edema Neurological: Alert, Oriented, CN II-XII Intact, Normal Cognition, Normal Gait, Normal Reflexes, No Motor/Sensory Deficits Psychiatric: Normal Affect, Normal Mood Skin Exam: Warm, Dry, Intact, Normal Color, No Rash Lymphatic: No Adenopathy Course - Vital Signs Last Recorded V/S: Last Vital Signs Temp 37.0 C 09/03/17 12:44 Pulse 65 09/03/17 12:44 Resp 20 09/03/17 12:44 BP 175/89 H 09/03/17 12:44 Pulse Ox 94 L 09/03/17 12:44 - Orders/Labs/Meds Orders: Active Orders 24 hr Category Date Time Status EKG Documentation Completion [RC] URGENT Care 09/03/17 13:09 Ordered Labs: Laboratory Tests 09/03/17 09/03/17 Range/Units 13:15 13:15 WBC 5.8 (5.0-10.0) 10^3/uL RBC 3.97 L (4.2-5.4) 10^6/uL Hgb 12.7 (12.0-16.0) g/dL Hct 37.2 (37.0-47.0) % MCV 93.7 (80-100) fL MCH 32.0 (27.0-34.0) pg MCHC 34.1 (33.0-35.0) g/dL Plt Count 206 (150-450) 10^3/uL Neut % (Auto) 53.7 (42.2-75.2) % Lymph % (Auto) 32.3 (20.5-50.1) % [place] % (Auto) 10.5 H (2-8) % Eos % (Auto) 3.3 H (1.0-3.0) % Baso % (Auto) 0.2 (0.0-1.0) % Sodium 137 (135-145) mmol/L Potassium 3.5 L (3.6-5.0) mmol/L Chloride 106 (101-111) mmol/L Carbon Dioxide 24.0 (21.0-31.0) mmol/L Anion Gap 10.5 BUN 11 (7-18) mg/dL Creatinine 0.6 (0.6-1.3) mg/dL Est Cr Clr Drug Dosing 109.68 mL/min Estimated GFR (MDRD) > 60 BUN/Creatinine Ratio 18.33 Glucose 92 (74-105) mg/dL Calcium 8.4 (8.4-10.2) mg/dl Total Bilirubin 0.6 (0.2-1.0) mg/dL AST 25 (10-42) IU/L ALT 23 (10-60) IU/L Alkaline Phosphatase 78 (42-121) IU/L Troponin I 0.04 H* (0.00-0.02) ng/ml Total Protein 6.6 L (6.7-8.2) g/dl Albumin 3.6 (3.2-5.5) g/dl Globulin 3.0 Albumin/Globulin Ratio 1.20 Departure - Departure Time of Disposition: 14:02 Disposition: Home, Self-Care 01 Condition: Fair Clinical Impression: Hypertension Qualifiers: Hypertension type: unspecified secondary hypertension Qualified Code(s): I15.9 - Secondary hypertension, unspecified Instructions: Hypertension Forms: ED Department Discharge Care Plan Goals: The patient was advised of the examination, lab and EKG results during the visit. The patient was encouraged to stop taking the Cymbalta at this time. If the patient has any additional symptoms or concerns, the patient should follow- up with her primary care facility or return to the emergency department. - My Orders Last 24 Hours: My Active Orders 09/03/17 13:09 EKG Documentation Completion [RC] URGENT - Assessment/Plan Last 24 Hours: My Active Orders 09/03/17 13:09 EKG Documentation Completion [RC] URGENT
[2017-09-03 13:41] LABS: CHLORIDE,CL 106 mmol/L (101-111); SODIUM,NA 137 mmol/L (135-145)
[2017-09-03 14:29] VITALS: BP 159/89
== END 2017-09-03 14:20 | disposition home or self-care (01) ==
LOC: DL.ED 12:31
DX: I15.9 Secondary hypertension, unspecified (principal); K21.9 Gastro-esophageal reflux disease without esophagitis; F41.9 Anxiety disorder, unspecified; F17.210 Nicotine dependence, cigarettes, uncomplicated; E78.00 Pure hypercholesterolemia, unspecified; Z79.899 Other long term (current) drug therapy; Z88.8 Allergy status to other drugs, medicaments and biological substances; Z91.09 Other allergy status, other than to drugs and biological substances
CPT/HCPCS: 36415; 80053; 84484; 85025; 93005; 99284

== ENCOUNTER 2018-04-12 22:03 | Emergency (ER) | payer MEDICAID, OTHER ==
[2018-04-12] MEDS ORDERED: Sodium Chloride 0.9% 10 ML Syringe FLUSH PRN (22:30)
--- NOTE | 2018-04-12 22:35 | EDM.PDOC ---
ED HPI GENERAL MEDICAL PROBLEM - General Chief Complaint: General Stated Complaint: FEELING SICK FOR OVER A WEEK Time Seen by Provider: 04/12/18 22:34 Source of Information: Reports: Patient History Limitations: Reports: No Limitations - History of Present Illness INITIAL COMMENTS - FREE TEXT/NARRATIVE: Pt to ER with c/o not feeling well since Thursday. She states she was seen in the clinic and told that this was most likely a viral illness. She states she has been having nausea without vomiting, as well as some back pain that began Thursday as well. She denies chest pain, but states she feels SOB at times. She denies fever or chills. She states she has been using Zofran for the nausea. She also states this morning she began having some pain in the left leg , back of the thigh. Denies urinary symptoms or constipation/diarrhea. Onset: Gradual Middle Back Pain Score (Numeric/FACES): 3 - Related Data Allergies Allergy/AdvReac Type Severity Reaction Status Date / Time lisinopril Allergy UNKNOWN Verified 04/12/18 22:19 DUST Allergy SNEEZING/CO Uncoded 04/12/18 22:19 NGESTION Home Meds: Home Meds Propranolol [Inderal] 10 mg PO BID 03/17/15 [History] Loratadine [Claritin] 10 mg PO ASDIRECTED PRN 04/17/15 [History] Famotidine [Pepcid AC] 40 mg PO DAILY 11/26/16 [History] Turmeric Root Extract [Turmeric] 500 mg PO DAILY 11/26/16 [History] amLODIPine [Norvasc] 5 mg PO DAILY 11/26/16 [History] Past Medical History - Past Health History Medical/Surgical History: Denies Medical/Surgical History Cardiovascular History: Reports: High Cholesterol, Hypertension Respiratory History: Reports: None Gastrointestinal History: Reports: GERD 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 History: Reports: None [employer]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, 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 Musculoskeletal History: Reports: Other (See Below) Other Musculoskeletal History: discoid lupus Neurological History: Reports: None Psychiatric History: Reports: Anxiety Endocrine/Metabolic History: Reports: Other (See Below) Other Endocrine/Metabolic History: IMPAIRED GLUCOSE TOLERANCE Hematologic History: Reports: None Immunologic History: Reports: Other (See Below) Other Immunologic History: lupus Oncologic (Cancer) History: Other Oncologic History: "precancerous cells of cervix" - Infectious Disease History Infectious Disease History: Reports: Chicken Pox - Past Surgical History Head Surgeries/Procedures: Reports: None HEENT Surgical History: Reports: None Cardiovascular Surgical History: Reports: None Respiratory Surgical History: Reports: None GI Surgical History: Reports: None, Other (See Below) Other GI Surgeries/Procedures: catheter for an obstruction in the small intestines Female Surgical History: Reports: Cervical Conization, Hysterectomy, Tubal Ligation Endocrine Surgical History: Reports: None Neurological Surgical History: Reports: None Musculoskeletal Surgical History: Reports: None Dermatological Surgical History: Reports: None Social & Family History - Family History Family Medical History: Noncontributory Cardiac: Reports: CAD, Heart Failure, High Cholesterol, Hypertension, SOB on Exertion Respiratory: Reports: Asthma, COPD Neurological: Reports: CVA - Tobacco Use Smoking Status *Q: Current Every Day Smoker Years of Tobacco use: 35 Packs/Tins Daily: 15 - Caffeine Use Caffeine Use: Reports: Coffee - Alcohol Use Date of Last Drink: 04/10/18 - Recreational Drug Use Recreational Drug Use: No - Living Situation & Occupation Living situation: Reports: with Family Occupation: Employed ED ROS GENERAL - Review of Systems Review Of Systems: ROS reveals no pertinent complaints other than HPI. ED EXAM, GENERAL - Physical Exam Exam: See Below Exam Limited By: No Limitations General Appearance: Alert, WD/WN, No Apparent Distress Eye Exam: Bilateral Eye: EOMI, Normal Inspection Ears: Normal External Exam, Hearing Grossly Normal Nose: Normal Inspection Throat/Mouth: Normal Inspection, Normal Voice, No Airway Compromise Head: Atraumatic, Normocephalic Neck: Normal Inspection, Supple, Non-Tender, Full Range of Motion Respiratory/Chest: No Respiratory Distress, Decreased Breath Sounds, Crackles ( bases bilaterally) Cardiovascular: Normal Peripheral Pulses, Regular Rate, Rhythm, No Edema, No Gallop, No JVD, No Murmur, No Rub Peripheral Pulses: 2+: Radial (L), Radial (R) GI/Abdominal: Normal Bowel Sounds, Soft, Non-Tender (Female) Exam: Deferred Rectal (Female) Exam: Deferred Back Exam: Normal Inspection, Full Range of Motion Extremities: Normal Inspection, Normal Range of Motion, Non-Tender, No Pedal Edema, Normal Capillary Refill Neurological: Alert, Oriented, CN II-XII Intact, Normal Cognition, Normal Gait, Normal Reflexes, No Motor/Sensory Deficits Psychiatric: Normal Affect, Normal Mood Skin Exam: Warm, Dry, Intact, Normal Color, No Rash Lymphatic: No Adenopathy EKG INTERPRETATION EKG Date: 04/12/18 Time: 22:45 Rhythm: NSR Rate (Beats/Min): 62 [place]: Normal P-Wave: Present QRS: Normal ST-T: Normal QT: Normal Comparison: No Change Course - Vital Signs Last Recorded V/S: Last Vital Signs Temp 98.1 F 04/12/18 22:06 Pulse 77 04/12/18 22:06 Resp 18 04/12/18 22:06 BP 184/6 H 04/12/18 22:06 Pulse Ox 100 04/12/18 22:06 - Orders/Labs/Meds Orders: Active Orders 24 hr Category Date Time Status EKG Documentation Completion [RC] STAT Care 04/12/18 22:31 Active Peripheral IV Care [RC] . DIRECTED Care 04/12/18 22:32 Active Chest 2V [CR] Urgent Exams 04/12/18 23:19 Taken Sodium Chloride 0.9% [Saline Flush] Med 04/12/18 22:30 Active 10 ml FLUSH ASDIRECTED PRN Peripheral IV Insertion Adult [OM.PC] Stat Oth 04/12/18 22:30 Ordered Medication Orders Sodium Chloride (Saline Flush) 10 ml FLUSH ASDIRECTED PRN PRN Reason: Keep Vein Open Last Admin: 04/12/18 22:40 Dose: 10 ml Labs: Laboratory Tests 04/12/18 04/12/18 04/12/18 Range/Units 22:42 22:42 22:42 WBC 8.0 (5.0-10.0) 10^3/uL RBC 3.85 L (4.2-5.4) 10^6/uL Hgb 12.5 (12.0-16.0) g/dL Hct 36.3 L (37.0-47.0) % MCV 94.3 (80-100) fL MCH 32.5 (27.0-34.0) pg MCHC 34.4 (33.0-35.0) g/dL Plt Count 216 (150-450) 10^3/uL Neut % (Auto) 54.9 (42.2-75.2) % Lymph % (Auto) 33.3 (20.5-50.1) % [place] % (Auto) 9.3 H (2-8) % Eos % (Auto) 2.0 (1.0-3.0) % Baso % (Auto) 0.5 (0.0-1.0) % PT 9.3 (9.0-12.0) SEC INR 0.9 (0.9-1.2) D-Dimer, Quantitative < 100 (0-400) ng/mL Sodium 136 (135-145) mmol/L Potassium 3.5 L (3.6-5.0) mmol/L Chloride 103 (101-111) mmol/L Carbon Dioxide 24.0 (21.0-31.0) mmol/L Anion Gap 12.5 BUN 12 (7-18) mg/dL Creatinine 0.5 L (0.6-1.3) mg/dL Est Cr Clr Drug Dosing 131.61 mL/min Estimated GFR (MDRD) > 60 BUN/Creatinine Ratio 24.00 Glucose 88 (74-105) mg/dL Calcium 8.5 (8.4-10.2) mg/dl Total Bilirubin 0.4 (0.2-1.0) mg/dL AST 20 (10-42) IU/L ALT 18 (10-60) IU/L Alkaline Phosphatase 76 (42-121) IU/L Troponin I 0.03 H* (0.00-0.02) ng/ml Total Protein 7.0 (6.7-8.2) g/dl Albumin 3.6 (3.2-5.5) g/dl Globulin 3.4 Albumin/Globulin Ratio 1.06 Meds: Medications Generic Name Dose Route Start Last Admin Trade Name Freq PRN Reason Stop Dose Admin Sodium Chloride 10 ml 04/12/18 22:30 04/12/18 22:40 Saline Flush FLUSH 10 ml ASDIRECTED PRN Administration Keep Vein Open - Radiology Interpretation Free Text/Narrative:: Chest xray: FINDINGS: Lungs: Unremarkable. No consolidation. Pleural space: Unremarkable. No pleural effusion. No pneumothorax. Heart/Mediastinum: Unremarkable. No cardiomegaly. Bones/joints: Unremarkable. IMPRESSION: No acute findings. Thank you for allowing us to participate in the care of your patient. Dictated and Authenticated by: Eduin Frausto MD 04/13/2018 12:06 AM Central Time ([place] & [place]) See rad report Departure - Departure Time of Disposition: 00:08 Disposition: Home, Self-Care 01 Condition: Fair Clinical Impression: Viral upper respiratory illness, Nausea - Discharge Information *PRESCRIPTION DRUG MONITORING PROGRAM REVIEWED*: No *COPY OF PRESCRIPTION DRUG MONITORING REPORT IN PATIENT KACIE: No Instructions: Viral Respiratory Infection, [id number], Nausea, Adult, Easy-to -Read, Viral Illness, Adult Forms: ED Department Discharge Additional Instructions: Continue using your Zofran Drink plenty of water Liquid and bland diet until nausea improves If nausea does not improve, follow up with GI at [facility] Follow up with your primary care facility - My Orders Last 24 Hours: My Active Orders 04/12/18 22:30 Sodium Chloride 0.9% [Saline Flush] 10 ml FLUSH ASDIRECTED PRN Peripheral IV Insertion Adult [OM.PC] Stat 04/12/18 22:31 EKG Documentation Completion [RC] STAT 04/12/18 22:32 Peripheral IV Care [RC] . DIRECTED 04/12/18 23:19 Chest 2V [CR] Urgent - Assessment/Plan Last 24 Hours: My Active Orders 04/12/18 22:30 Sodium Chloride 0.9% [Saline Flush] 10 ml FLUSH ASDIRECTED PRN Peripheral IV Insertion Adult [OM.PC] Stat 04/12/18 22:31 EKG Documentation Completion [RC] STAT 04/12/18 22:32 Peripheral IV Care [RC] . DIRECTED 04/12/18 23:19 Chest 2V [CR] Urgent
[2018-04-12 23:07] LABS: ANION GAP 12.5; CHLORIDE,CL 103 mmol/L (101-111); SODIUM,NA 136 mmol/L (135-145)
[2018-04-13 00:33] VITALS: BP 165/95
== END 2018-04-13 00:26 | disposition home or self-care (01) ==
LOC: DL.ED 22:03
DX: J06.9 Acute upper respiratory infection, unspecified (principal); K21.9 Gastro-esophageal reflux disease without esophagitis; I10 Essential (primary) hypertension; Z88.8 Allergy status to other drugs, medicaments and biological substances; Z91.09 Other allergy status, other than to drugs and biological substances; Z79.899 Other long term (current) drug therapy
CPT/HCPCS: 36415; 71046; 80053; 84484; 85025; 85379; 85610; 87804; 93005; 99283

== ENCOUNTER 2018-05-05 22:34 | Emergency (ER) | payer MEDICAID ==
[2018-05-05 22:42] VITALS: BP 133/86
[2018-05-05 23:14] LABS: ANION GAP 16.3; CHLORIDE,CL 102 mmol/L (101-111); SODIUM,NA 139 mmol/L (135-145)
[2018-05-05] MEDS ORDERED: Aspirin 81 MG Tab.Chew PO ONE (23:41)
== END 2018-05-06 00:20 | disposition left against medical advice (07) ==
LOC: DL.ED 22:34
DX: Z53.20 Procedure and treatment not carried out because of patient's decision for unspecified reasons (principal)
CPT/HCPCS: 36415; 80053; 84484; 85025; 93005; 99284; A9270; G0480

== ENCOUNTER 2018-06-30 11:06 | Emergency (ER) | payer MEDICAID, OTHER ==
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
[2018-06-30 11:42] LABS: ANION GAP 14.9; CHLORIDE,CL 100 mmol/L (101-111); SODIUM,NA 133 mmol/L (135-145)
[2018-06-30] MEDS ORDERED: Ibuprofen 800 MG Tab PO ONE (12:53)
== END 2018-06-30 13:02 | disposition home or self-care (01) ==
LOC: DL.ED 11:06
DX: S06.0X0A Concussion without loss of consciousness, initial encounter (principal); S20.211A Contusion of right front wall of thorax, initial encounter; S80.00XA Contusion of unspecified knee, initial encounter; Z88.8 Allergy status to other drugs, medicaments and biological substances; Z91.09 Other allergy status, other than to drugs and biological substances; Z79.899 Other long term (current) drug therapy; V87.7XXA Person injured in collision between other specified motor vehicles (traffic), initial encounter
CPT/HCPCS: 36415; 70450; 71101-RT; 72125; 80053; 85025; 99285-25; A9270-GY

== ENCOUNTER 2018-08-03 19:31 | Emergency (ER) | payer MEDICAID | END 2018-08-03 20:26 | disposition left against medical advice (07) | LOC: DL.ED 19:31 | DX: Z53.21 Procedure and treatment not carried out due to patient leaving prior to being seen by health care provider (principal) ==

== ENCOUNTER 2018-08-03 22:03 | Emergency (ER) | payer OTHER, MEDICAID ==
[2018-08-03 22:41] VITALS: BP 162/86
[2018-08-04] MEDS ORDERED: Sodium Chloride 0.9% 1,000 ML IV ONE (00:17)
[2018-08-04] MEDS ORDERED: Ketorolac 30 MG/ML SDV IVPUSH ONE (00:23)
[2018-08-04 00:51] LABS: ANION GAP 10.6; CHLORIDE,CL 107 mmol/L (101-111); SODIUM,NA 136 mmol/L (135-145)
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
== END 2018-08-04 01:46 | disposition home or self-care (01) ==
LOC: DL.ED 22:03
DX: G44.309 Post-traumatic headache, unspecified, not intractable (principal); I10 Essential (primary) hypertension; K21.9 Gastro-esophageal reflux disease without esophagitis; F41.9 Anxiety disorder, unspecified; F17.210 Nicotine dependence, cigarettes, uncomplicated; Z88.8 Allergy status to other drugs, medicaments and biological substances; Z79.899 Other long term (current) drug therapy
CPT/HCPCS: 36415; 80053; 85025; 96365; 96375; 99283; J1885; J7030

== ENCOUNTER 2018-08-30 12:58 | Emergency (ER) | payer MEDICAID ==
[2018-08-30 13:26] VITALS: BP 183/100
[2018-08-30] MEDS ORDERED: Metoclopramide 10 MG/2 ML SDV IVPUSH ONE (14:27)
[2018-08-30] MEDS ORDERED: Sodium Chloride 0.9% 1,000 ML IV ONE (14:27)
[2018-08-30] MEDS ORDERED: Ketorolac 30 MG/ML SDV IVPUSH ONE (14:27)
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
[2018-08-30] MEDS ORDERED: diphenhydrAMINE 50 MG/ML SDV IVPUSH ONE (15:09)
== END 2018-08-30 15:48 | disposition home or self-care (01) ==
LOC: DL.ED 12:58
DX: G43.909 Migraine, unspecified, not intractable, without status migrainosus (principal); I10 Essential (primary) hypertension; F41.9 Anxiety disorder, unspecified; F17.210 Nicotine dependence, cigarettes, uncomplicated; Z88.8 Allergy status to other drugs, medicaments and biological substances; Z79.899 Other long term (current) drug therapy; Z98.51 Tubal ligation status; Z90.710 Acquired absence of both cervix and uterus
CPT/HCPCS: 96361; 96374; 96375; 99283; J1200; J1885; J2765; J7030